=== PATIENT | female | born 1960 | race Caucasian/White ===

== ENCOUNTER → 2018-08-10 13:24 | Outpatient (CLI) | payer BC, SELFPAY ==
[2018-08-10 14:23] LABS: Basophils % 0.5 % (0.1-2.0); Eosinophils # 0.2 K/mm3 (0.0-0.4); Hematocrit 50.1 % (37.0-47.0); Hemoglobin 16.4 g/dL (12.2-16.2); Lymphocytes # 2.3 K/mm3 (0.7-4.5); Lymphocytes % 36.2 % (10-50); Mean Corpuscular HGB Conc 32.6 g/dL (31.8-35.4); Mean Corpuscular Hemoglobin 28.7 pg (27.0-31.2); Mean Platelet Volume 10.6 fl (7.4-10.4); Monocytes # 0.4 K/mm3 (0.1-1.0); Monocytes % 6.6 % (1.7-9.3); Neutrophils # 3.4 K/mm3 (1.8-7.8); Neutrophils % 53.8 % (37.0-80.0); Platelet Count 265 K/mm3 (142-424); Red Cell Distribution Width 13.1 % (11.5-17.5); White Blood Count 6.4 K/mm3 (4.8-10.8)
[2018-08-10 16:36] LABS: Alanine Aminotransferase 40 U/L (12-78); Albumin/Globulin Ratio 1.1 (1.1-1.8); Alkaline Phosphatase 83 U/L (46-116); Anion Gap 15.7 mEq/L (5-15); Aspartate Amino Transferase 18 U/L (15-37); Bilirubin,Total 0.3 mg/dL (0.2-1.0); Blood Urea Nitrogen 18 mg/dL (7-18); Calcium 10.2 mg/dL (8.5-10.1); Carbon Dioxide 27 mmol/L (21.0-32.0); Chloride 103 mmol/L (98-107); Chol/HDL Ratio 8.5 (1-3.5); Cholesterol 484 mg/dL (140-200); Creatinine,Serum 0.77 mg/dL (0.55-1.02); Estimated Glomerular Filt Rate 77 ml/min (>60); Free T4 (Free Thyroxine) 0.81 ng/dl (0.76-1.46); GFR (African American) 93 ML/MIN (>60); Globulin 3.5 gm/dl (1.3-3.2); Glucose 102 mg/dL (74-106); HDL Cholesterol 57 mg/dL (29-89); LDL Cholesterol 385 mg/dL (0-130); Potassium 4.7 mmoL/L (3.5-5.1); Sodium 141 mmol/L (136-145); Thyroid Stimulating Hormone 3.06 uIU/ml (0.358-3.740); Total Protein,Serum 7.5 gm/dL (6.4-8.2); Triglycerides 210 mg/dL (30-200); VLDL Cholesterol 42 mg/dL (0-40)
[2018-08-11 09:26] LABS: Vitamin D 25 Hydroxy 31.5 ng/mL (30.0-100.0)
== END ==
PROVIDERS: Visit Provider Emergency Medicine
DX: E78.5 Hyperlipidemia, unspecified (principal)
CPT/HCPCS: 80053; 80061; 82652; 84439; 84443; 85025

== ENCOUNTER → 2018-09-04 09:25 | Outpatient (CLI) | payer BC, SELFPAY ==
--- NOTE | 2018-09-04 09:28 | MM_ITS ---
MM Dig screening mamm BI w/CAD ORDERING PHYSICIAN : Herb Hood MD PATIENT AGE: 57 years GENDER: Female COMPARISON:. January 2014 & November 2015 prior digital mammogram available. Outside studies from [facility] INDICATION: Routine screening. No hormones no new complaints. Noncontributory family history. TECHNIQUE: Standard CC and MLO images were obtained. R2 CAD reviewed. FINDINGS: Minimal residual fibroglandular elements, Lower-density breast bilaterally. With Generalized fatty replacement. No dominant mass nor suspicious calcifications either breast. No significant change since previous study. Bilateral follow-up in one year adequate. CAD computer review highlights no areas of concern either. . IMPRESSION: Stable bilateral mammogram with no significant new findings. BI-RADS Category: 1 Negative RECOMMENDED FOLLOW-UP: 1YR 1 YEAR FOLLOW-UP (A letter has been sent to the patient regarding results of the study.)
== END ==
PROVIDERS: PCP Emergency Medicine; Visit Provider Emergency Medicine
DX: Z12.31 Encounter for screening mammogram for malignant neoplasm of breast (principal)
CPT/HCPCS: 77067

== ENCOUNTER 2020-11-22 14:06 | Outpatient (RCR) | payer BC, SELFPAY | END 2021-04-18 10:34 | disposition home or self-care (01) | LOC: PT 14:06 | PROVIDERS: Visit Provider Thoracic Surgery (Cardiothoracic Vascular Surgery) | DX: Z95.3 Presence of xenogenic heart valve (principal); Z95.1 Presence of aortocoronary bypass graft | CPT/HCPCS: 93798 ==

== ENCOUNTER 2024-02-23 11:00 | Outpatient (CLI) | payer BC, SELFPAY ==
--- NOTE | 2024-02-23 11:06 | MM_ITS ---
PROCEDURE INFORMATION: Exam: MG Bilateral Screening 3D Mammography Exam date and time: 02/23/2024 10:49 AM Age: 63 years old Clinical indication: Screening examination TECHNIQUE: Imaging protocol: Bilateral Screening tomosynthesis and 2D mammography including computer-aided detection (CAD) when performed. COMPARISON: MG [facility] MM Dig screening mamm BI w/CAD 09/04/2018 9:43 AM FINDINGS: MAMMOGRAPHY: Breast composition: There are scattered areas of fibroglandular density. Mass: No suspicious masses. Architectural distortion: None. Calcifications: No suspicious calcifications. Asymmetric density: None. Skin thickening: None. Axillary adenopathy: None. IMPRESSION: No mammographic evidence of malignancy. Annual screening is recommended unless otherwise clinically indicated. ASSESSMENT: BI-RADS Category 1: Negative.
== END 2024-02-23 23:59 | disposition home or self-care (01) ==
LOC: RAD 11:01
PROVIDERS: PCP Nurse Practitioner Family; Visit Provider Nurse Practitioner Family
DX: Z12.31 Encounter for screening mammogram for malignant neoplasm of breast (principal)
CPT/HCPCS: 77063; 77067

== ENCOUNTER → 2024-03-15 20:27 | Outpatient (CLI) | payer BC, SELFPAY | LOC: SL 20:28 | PROVIDERS: PCP Nurse Practitioner Family; Visit Provider Specialist | DX: G47.33 Obstructive sleep apnea (adult) (pediatric) (principal); G47.36 Sleep related hypoventilation in conditions classified elsewhere | CPT/HCPCS: 95810 ==